=== PATIENT | female | born 1950 | race Caucasian/White ===

== ENCOUNTER → 2023-04-27 | Outpatient (CLI) | payer MEDICARE | END | disposition home or self-care (01) | LOC: RESCLI 12:55 | PROVIDERS: ATTEND Family Medicine | DX: I48.91 Unspecified atrial fibrillation (principal); I10 Essential (primary) hypertension; J44.9 Chronic obstructive pulmonary disease, unspecified; E78.5 Hyperlipidemia, unspecified; R11.2 Nausea with vomiting, unspecified; F32.9 Major depressive disorder, single episode, unspecified; F41.9 Anxiety disorder, unspecified; E43 Unspecified severe protein-calorie malnutrition; K59.00 Constipation, unspecified; G89.29 Other chronic pain; Z95.818 Presence of other cardiac implants and grafts; Z79.899 Other long term (current) drug therapy ==